=== PATIENT | female | born 1935 | race Caucasian/White ===

== ENCOUNTER 2017-06-29 18:15 | Emergency (ER) | payer MEDICARE, BC ==
[~2017-06-29] VITALS: Ht 154.9 cm; Wt 59.5 kg
[~2017-06-29 18:15] MED LIST: ASPIRIN E.C. 8181 MG PO; CO Q-1050 M1 PO; DAILY MULTIPLE1 T18 PO; FISH OIL EC 1,1 EACH PO; LEVOTHYROXINE PO; LIPO-FLAVONOID1 EACH PO; MASON NATURAL L20 MG PO; VITAMIN C PURE500 M1 PO; VITAMIN D400 UNIT PO
[2017-06-29 20:05] VITALS: BP 162/79
== END 2017-06-29 20:05 | disposition home or self-care (01) ==
LOC: ED 18:15
DX: S29.011A Strain of muscle and tendon of front wall of thorax, initial encounter (principal); S29.012A Strain of muscle and tendon of back wall of thorax, initial encounter; X50.0XXA Overexertion from strenuous movement or load, initial encounter; E03.9 Hypothyroidism, unspecified

== ENCOUNTER → 2017-07-29 | Outpatient (CLI) | payer MEDICARE, BC ==
[2017-06-29 20:05] VITALS: BP 162/79
== END ==
LOC: CARDREHAB 07:48
DX: R07.9 Chest pain, unspecified (principal); Z82.49 Family history of ischemic heart disease and other diseases of the circulatory system; E78.5 Hyperlipidemia, unspecified

== ENCOUNTER 2019-03-16 17:01 | Emergency (ER) | payer MEDICARE, BC ==
[~2019-03-16] VITALS: Ht 154.9 cm; Wt 58.6 kg
[2019-03-16 17:31] LABS: HEMATOCRIT 40.1 % (37.0-47.0); HEMOGLOBIN 12.8 g/dL (12.5-16.0); MEAN CELL VOLUME 90 fl (78-100); MEAN CORPUSCULAR HEMOGLOBIN 29 pg (27-31); MEAN CORPUSCULAR HGB CONC 32 g/dL (33-37); MEAN PLATELET VOLUME 9.8 fl (7.4-10.4); PLATELET COUNT 373 K/mm3 (130-400); RED BLOOD COUNT 4.48 M/mm3 (4.10-5.30); RED CELL DISTRIBUTION WIDTH 13.9 % (11.5-14.5); WHITE BLOOD COUNT 11.5 K/mm3 (4.8-10.8)
[2019-03-16 18:08] LABS: LYMPHOCYTE 12 % (20-51); MONOCYTE 3 % (3-10); NEUTROPHILS 84 % (42-75)
[2019-03-16 18:19] LABS: PH-URINE 5.5 (5.0 - 8.0); URINE APPEARANCE CLEAR; URINE BILIRUBIN NEGATIVE (NEGATIVE); URINE BLOOD NEGATIVE (NEGATIVE); URINE COLOR YELLOW; URINE GLUCOSE NEGATIVE (NEGATIVE); URINE KETONE NEGATIVE (NEGATIVE); URINE LEUKOCYTE ESTERASE NEGATIVE (NEGATIVE); URINE NITRATE NEGATIVE (NEGATIVE); URINE PROTEIN(semi-quant) NEGATIVE (NEGATIVE); URINE UROBILINOGEN NORMAL (NORMAL)
[2019-03-16 18:21] LABS: CALCIUM 9.5 mg/dL (8.3-10.5); TOTAL BILIRUBIN 0.2 mg/dL (0.2-1.2); TOTAL PROTEIN 7.4 g/dL (6.2-8.1)
[2019-03-16 18:39] LABS: POTASSIUM 4.5 mmol/L (3.5-5.1)
[2019-03-16 19:35] VITALS: BP 150/66
== END 2019-03-16 19:35 | disposition home or self-care (01) ==
LOC: ED 17:01
PROVIDERS: Nurse Practitioner Family
DX: H83.02 Labyrinthitis, left ear (principal); K21.9 Gastro-esophageal reflux disease without esophagitis; Z90.49 Acquired absence of other specified parts of digestive tract; Z90.89 Acquired absence of other organs
CPT/HCPCS: J7030

== ENCOUNTER → 2019-03-27 | Outpatient (CLI) | payer MEDICARE, BC ==
[2019-03-16 19:35] VITALS: BP 150/66
== END ==
LOC: RAD 11:37
DX: R53.83 Other fatigue (principal)

== ENCOUNTER → 2021-06-26 | Outpatient (CLI) | payer MEDICARE, BC | LOC: RAD 13:49 | DX: R91.1 Solitary pulmonary nodule (principal) ==

== ENCOUNTER → 2023-06-02 | Outpatient (CLI) | payer MEDICARE, BC | LOC: RAD 12:53 → MAMMO 13:00 | DX: M81.0 Age-related osteoporosis without current pathological fracture (principal) ==